=== PATIENT | female | born 1995 | race Caucasian/White ===

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

== ENCOUNTER 2017-01-26 17:36 | Emergency (ER) | payer BC, OTHER ==
[~2017-01-26] VITALS: Ht 175.3 cm; Wt 91.2 kg
[~2017-01-26 17:36] MED LIST: BCPILLS PO; MULT1CAP3 PO; SERT1TAB92 PO
[2017-01-26 17:38] VITALS: Ht 175.3 cm; Wt 91.2 kg
[2017-01-26] MEDS ORDERED: SERT-234 PO (17:50)
--- NOTE | 2017-01-26 18:17 | EMERGENCY ROOM VISIT NOTE ---
History Report prepared by Rossi: Yessenia Alcala Under the Supervision of: Dr. Charles Hirsch M.D. First contact with patient: 17:53 Chief Complaint: SORETHROAT Stated Complaint: COUGH UP BLOOD History of Present Illness The patient is a 21 year old female who presents to the Emergency Room with complaints of a worsening sore throat for the past 1 week. She rates her pain as a 5/10 in severity. She still has her tonsils. She admits to a history of strep throat and [facility] with the most recent episode of strep throat being 9 months ago. Earlier today, the patient went to a local walk in clinic and was given a 10 day course of Clindamycin. After she took the 2nd dose of Clinda, approximately 30 minutes prior to arrival, she experienced hemoptysis. The patient admits to some left ear pain but states there was no infection seen at the clinic. She denies any fever or nasal congestion. She admits to having roommates who had cold symptoms recently but denies any recent exposure to mono. The patient reports her voice sounds more hoarse and her neck feels tender on the left side, where her throat feels more sore. Her only daily medications are a control pill and Zoloft. Source of History: patient Onset: 1 week [employer] Position: throat Symptom Intensity: 5/10 Timing: worsening Associated Symptoms: + neck pain (on the left side), No fevers, No cough Review of Systems See HPI for pertinent positives & negatives. A total of 10 systems reviewed and were otherwise negative. Past Medical & Surgical Medical Problems: (1) DEANNE (generalized anxiety disorder) Family History Cancer Hypertension Social History Smoking Status: Never Smoker Alcohol Use: occasionally Drug Use: none Marital Status: single Housing Status: lives with roommate Occupation Status: [email or web address] student Current/Historical Medications Scheduled Control Pills ( Control Pills), 1 TAB PO DAILY Multiple Vitamins W/ Minerals (Womens Multi), 1 TAB PO DAILY Prednisone (Prednisone), 0 PO DAILY Sertraline (Zoloft), 150 MG PO DAILY Allergies Coded Allergies: No Known Allergies (Unverified , 01/26/17) Physical Exam Vital Signs Date Time Temp Pulse Resp B/P (MAP) Pulse Ox O2 Delivery O2 Flow Rate FiO2 01/26/17 19:00 36.8 93 20 116/68 98 01/26/17 18:59 93 20 116/68 98 Room Air 9/3/17 18:26 98 Room Air 01/26/17 17:38 36.8 98 20 124/79 98 Room Air Physical Exam GENERAL: Patient is in no acute distress. HEENT: Throat erythema and tonsillar swelling, more so on the left. No uvular shift. No evidence of peritonsillar abscess, no voice change and no trismus. Fluid behind both drums, left more so than right, no infection. NECK: No stridor, left more so than right anterior cervical adenopathy, no meningismus, trachea is midline. LUNGS: Clear to auscultation bilaterally, no wheeze, no rhonchi, breath sounds equal. HEART: Without murmurs gallops or rubs, regular rate and rhythm. ABDOMEN: Soft, nontender, bowel sounds positive, no hernias, no peritonitis. EXTREMITIES: No cyanosis or edema, full range of motion of all the joints without pain or difficulty, no signs for acute trauma. NEUROLOGIC: Oriented x 3, no acute motor or sensory deficits, no focal weakness. SKIN: No rash, no jaundice, no diaphoresis. Medical Decision & Procedures ER Provider Diagnostic Interpretation: Radiology results as stated below per my review and radiologist interpretation: CHEST ONE VIEW PORTABLE HISTORY: Short of breath., cough COMPARISON: None. FINDINGS: The lungs are clear. Cardiac silhouette is normal in size. No pleural effusions. No pneumothorax. Slightly rotated study. IMPRESSION: No acute process. Electronically signed by: Jonathan Grimm M.D. 01/26/2017 6:32 PM Medications Administered Medications (Trade) Dose Ordered Sig/Penelope Route Start Time Stop Time Status Last Admin Dose Admin Prednisone (PredniSONE TAB) 60 mg NOW STAT PO 01/26/17 18:01 01/26/17 18:02 DC 01/26/17 18:16 60 MG ED Course 1755: The patient was evaluated in room C3. A complete history and physical exam was performed. 180: Prednisone 60 mg PO. 1850: I reevaluated the patient. She is feeling well and resting comfortably. I discussed her results and discharge instructions and she verbalized complete understanding and agreement. Medical Decision The differential diagnoses considered include tonsillitis, tonsillar abscess, pneumonia, bronchitis, peritonsillar abscess, otitis media and coagulopathy. The patient presents after coughing and spitting up some mucus with blood. She has taken 2 doses of clindamycin for tonsillitis. She has had similar types of the throat infections in the past. The patient's lungs sound clear. Chest film is unremarkable. She's not hypoxic or toxic, she is not febrile. She appears to have tonsillitis on exam, no evidence for peritonsillar abscess. The patient was given oral prednisone. She will be on this plus the clindamycin. I suspect the blood in the mucus was from her tonsillar irritation and tonsillitis. She was reassured, she is being discharged home. Medication Reconcilliation Current Medication List: was personally reviewed by me Blood Pressure Screening Patient's blood pressure: Normal blood pressure Blood pressure disposition: Did not require urgent referral Impression Primary Impression: Tonsillitis Scribe Attestation The scribe's documentation has been prepared under my direction and personally reviewed by me in its entirety. I confirm that the note above accurately reflects all work, treatment, procedures, and medical decision making performed by me. Departure Information Dispostion Home / Self-Care Prescriptions Prednisone (Prednisone) 20 Mg Tab 0 PO DAILY, #18 TAB 3 DAILY FOR 3 DAYS, THEN 2 DAILY FOR 3 DAYS, THEN 1 DAILY FOR 3 DAYS. Prov: Charles Hirsch M.D. 01/26/17 Referrals No Doctor, Assigned (PCP) Patient Instructions My [facility] Additional Instructions continue the clindamycin add prednisone as directed motrin and or tylenol for pain fluids rest return for worsening symptoms or if not improving on the meds
--- NOTE | 2017-01-26 18:34 | DIAGNOSTIC IMAGING REPORT ---
CHEST ONE VIEW PORTABLE HISTORY: Short of breath., cough COMPARISON: None. FINDINGS: The lungs are clear. Cardiac silhouette is normal in size. No pleural effusions. No pneumothorax. Slightly rotated study. IMPRESSION: No acute process. Electronically signed by: Jonathan Grimm M.D. 01/26/2017 6:32 PM Dictated Date/Time: 01/26/2017 6:31 PM
[2017-01-26] MEDS ORDERED: PRED20TA PO (18:49)
[2017-01-26 19:00] VITALS: BP 116/68; PULSE 93; TEMP 36.8; O2SAT 98
== END 2017-01-26 19:00 | disposition home or self-care (01) ==
LOC: C.EDB 17:36 → C.EDC 19:00
DX: J03.90 Acute tonsillitis, unspecified (principal); F41.1 Generalized anxiety disorder; Z82.49 Family history of ischemic heart disease and other diseases of the circulatory system; Z79.899 Other long term (current) drug therapy